=== PATIENT | male | born 1945 | race Caucasian/White ===

== ENCOUNTER 2017-10-04 17:08 | Observation (INO) | payer OTHER, MEDICAID ==
[~2017-10-04] VITALS: Ht 147.3 cm; Wt 73.9 kg
[2017-10-04 17:13] VITALS: BP 154/88
[2017-10-04] MEDS ORDERED: TELMISARTAN40 MG PO (17:38)
[2017-10-04] MEDS ORDERED: TOPROL XL100 MG PO (17:38)
[2017-10-04] MEDS ORDERED: LIPITOR 20 MG T20 M1 PO (17:39)
[2017-10-04] MEDS ORDERED: GLUCOPHAGE XR500 MG PO (17:39)
[2017-10-04] MEDS ORDERED: OMEPRAZOLE 20 M20 M1 PO (17:39)
[2017-10-04] MEDS ORDERED: SERTRALINE HCL50 MG PO (17:39)
[2017-10-04] MEDS ORDERED: FLOMAX0.4 MG PO (17:39)
[2017-10-04 17:45] LABS: ABSOLUTE BASOPHILS 0.1 thou/uL (0.0-0.2); ABSOLUTE EOSINOPHILS 0.1 thou/uL (0.0-0.7); ABSOLUTE LYMPHOCYTES 2.2 thou/uL (0.8-5.3); ABSOLUTE NEUTROPHILS 6.9 thou/uL (1.6-8.1); EOSINOPHILS 1.2 %; HEMATOCRIT 46.5 % (42.0-52.0); HEMOGLOBIN 15.5 gm/dL (14.0-18.0); LYMPHOCYTES 21.2 %; MCH 30.5 pg (26.0-34.0); MCHC 33.3 g/dL (28.0-37.0); MCV 91.6 fL (80.0-100.0); MPV 10.4 fl. (7.2-11.1); NUCLEATED RBCS 0 /100WBC; PLATELET COUNT* 183 thou/uL (150-400); POLYS 66.6 %; RBC 5.08 mil/uL (4.50-6.00); RDW-CV 14.4 % (10.5-14.5); WBC 10.3 thou/uL (4.0-11.0)
[2017-10-04 17:57] LABS: INR 1.1; PROTIME 10.3 Seconds (9.20-11.50)
[2017-10-04 18:00] LABS: ANION GAP 10 mmol/L (7-16); BUN 19 mg/dL (7-18); CALCIUM 8.7 mg/dL (8.5-10.1); CHLORIDE 105 mmol/L (98-107); CO2 24 mmol/L (21-32); CREATININE 1.3 mg/dL (0.6-1.3); GLUCOSE 93 mg/dL (70-99); POTASSIUM 4.5 mmol/L (3.5-5.1); SODIUM 139 mmol/L (136-145)
[2017-10-04 18:07] LABS: ALBUMIN 3.6 g/dL (3.4-5.0); ALKALINE PHOSPHATASE 49 U/L (46-116); LIPASE 367 U/L (73-393); NT-PRO BRAIN NAT PEPTIDE 26 pg/mL (<300); SGOT 23 U/L (15-37); SGPT 47 U/L (30-65); TOTAL PROTEIN 7.3 g/dL (6.4-8.2); TROPONIN-I LEVEL <0.06 ng/mL (<0.06)
[2017-10-04 19:45] VITALS: BP 145/85
--- NOTE | 2017-10-04 20:30 | NUR ---
RECEIVED PATIENT FROM ER- ORIENTED TO ROOM. CALL LIGHT IN REACH. STEEL WELDER APPLIED, TRACING NSR. VSS. SAFETY PRECAUTIONS IN PLACE. PAIN IN HEAD NOTED AT 12/24. WILL CONTACT DR FOR MEDICATIONS. WILL CONT TO MONITOR.
[2017-10-04 21:00] VITALS: BP 179/99
[2017-10-05 03:49] VITALS: BP 139/84
--- NOTE | 2017-10-05 03:55 | NUR ---
END SHIFT: PT RESTED WELL. NO COMPLAINTS. PAIN IN HEAD RELIEVED BY TYLENOL. IVF INFUSING WITHOUT DIFFICUTLY. NIH REMAINS 0. SR/SB ON MONITOR. NO ECTOPY. ASSESSMENT UNCHANGED, VSS. SAFETY PRECAUTIONS IN PLACE. CALL LIGHT IN REACH. PERFORMED HOURLY ROUNDING. WILL CONT TO MONITOR.
[2017-10-05 07:43] LABS: CHOLESTEROL 198 mg/dL (<200); HDL CHOLESTEROL 31 mg/dL (>40); LDL CHOLESTEROL 128 mg/dL (<100); TC:HDL 6.4 Ratio (Not establshd); TRIGLYCERIDE 196 mg/dL (<150); VLDL 39 mg/dL (<40)
[2017-10-05 07:45] LABS: SERUM ASSESSMENT Clear
[2017-10-05 11:31] VITALS: BP 150/81
[2017-10-05 12:49] VITALS: BP 150/81
[2017-10-05 13:30] VITALS: BP 150/81
[2017-10-05 13:35] VITALS: BP 150/81
[2017-10-05 14:08] LABS: GLYCOHEMOGLOBIN (HGB A1C) 5.6 % (4.8-5.6)
--- NOTE | 2017-10-05 17:25 | EKG ---
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 Supervisor: SILVINO : 1945 Requested By: Carlos Mccarty Order Number: [id number] MD: Manuel Mukherjee Measurements Intervals [place] Rate: 66 P: 17 [place]: 155 QRS: 182 QRSD: 82 T: QT: 404 QTc: 424 Interpretive Statements Sinus rhythm Right axis deviation Low voltage, extremity leads Abnormal R-wave progression, early transition Nonspecific T abnormalities, diffuse leads No previous ECG available for comparison Electronically Signed On 10-05-2017 17:25:24 CDT by Manuel Mukherjee [email or web address] <ELECTRONICALLY SIGNED> By: Manuel Mukherjee MD, FACC 10/05/17 1725 1716 1716 Manuel Mukherjee MD, FAC /EPI
--- NOTE | 2017-10-05 18:37 | NUR ---
I ASSUMED CARE OF THE PATIENT AT 0700. HE IS ALERT AND ORIENTED X4 AND UP AD DEL. HE IS ON ROOM AIR AND HE IS NORMAL SINUS RHYTHM. [facility] L[facility] AND HAS HOME HEALTH CARE. NIH IS ZERO. PATIENT HAS BEEN ADVISED TO TAKE ASPRIN AND TO INCREASE LIPITOR TO 40 MG. SKIN IS INTACT. MRA AND MRI CAME BACK OKAY, SO PATIENT IS OKAY TO DISCHARGE. BED IS IN THE LOW LOCKED POSITION AND CALL LIGHT IS IN REACH. HOURLY ROUNDING WAS COMPLETED AND PATIENT NEEDS WERE MET. IV WAS REMOVED. PATIENT DID LEFT THE BUILDING WHILE I WAS PRINTING DISCHARGE INSTRUCTIONS, SO NO SIGNATURE WAS OBTAINED. HE WAS EDUCATED. WILL CONTINUE TO MONITOR.
--- NOTE | 2017-10-14 12:30 | H ---
[place] [address] HISTORY AND PHYSICAL Name: SCOTT VORA Room: [address] John Bailey#: [id number] Admission: 10/04/17 Attend Phys: Sj Elkins MD Discharge: 10/05/17 Date of : 47 Report #: [id number] THIS REPORT FOR: //name// CC: Sj Elkins [facility] physician/PCP DATE OF SERVICE: 10/04/2017 CHIEF COMPLAINT OR REASON FOR ADMISSION: Headache with left upper extremity paresthesias. HISTORY OF PRESENT ILLNESS: This is a 72-year-old gentleman seen in the emergency department, is awake and alert, able to conversate. He mentions that he woke up this morning with severe headache and subsequently noticed that his arm was hurting and he was not feeling himself. He took Tylenol and felt slightly improved. He ate breakfast and about 11:00 o'clock, he started feeling his left upper extremity numbness. He has had a similar symptom twice before. I believe at [facility] include [facility] beds at the [facility] he was worked up and he was told that he had a TIA. Hence, he wanted to check himself and he went to his primary care physician and was told to go to the Emergency Department. He is in the Emergency Department, his symptoms have improved. He denies any fevers or chills, any cough, but he does complain of sinus congestion. No travel history or no sick contact. No nausea, no vomiting, no other complaints at this time. PAST MEDICAL HISTORY: History of TIA, hypertension, hyperlipidemia, BPH, diabetes, anxiety, and depression. CURRENT MEDICATIONS: List include telmisartan, metoprolol, metformin, Lipitor, omeprazole, Flomax, and sertraline. ALLERGIES: No known allergies. REVIEW OF SYSTEMS: HEAD: No complaints of any headache. EYES: No visual symptoms. EARS: No hearing difficulty. NOSE: Nasal congestion. THROAT: No soreness in throat. LUNGS: No cough, shortness of breath. CARDIOVASCULAR: No chest pain or palpitation. GASTROINTESTINAL: No nausea, no vomiting, no diarrhea. GENITOURINARY: No urine frequency, urgency. SKIN: No gross lesions or rashes. ENDOCRINE: History of diabetes. PSYCHIATRIC: History of anxiety[place] [address] HISTORY AND PHYSICAL Name: SCOTT VORA Room: [address]#: [id number] Admission: 10/04/17 Attend Phys: Sj Elkins MD Discharge: 10/05/17 Date of : 47 Report #: [id number] HEMATOLOGIC: No complaints of easy bruising or easy bleeding. MUSCULOSKELETAL: No complaints of aches or pains in joints. SKIN: No gross skin lesions or rashes. FAMILY MEDICAL HISTORY: Negative for any malignancies. SOCIAL HISTORY: Negative for any smoking, drinking or recreational drug use. PHYSICAL EXAMINATION: GENERAL: This is a 72-year-old gentleman seen in the emergency department, is awake and alert, does not appear to be in distress. VITAL SIGNS: Stable to appear. Blood pressure is 154/88. HEENT: Atraumatic, normocephalic. EYES: Conjunctivae are clear. Pupils are reactive. NOSE: There is no nasal discharge. NECK: Supple, no thyromegaly. No JVP appreciated. LUNGS: Diminished. CARDIOVASCULAR: S1, S2 appears to be regular. ABDOMEN: Soft, nontender, no organomegaly appreciated. Bowel sounds are active. GENITOURINARY: Deferred. RECTAL: Deferred. SKIN: Warm and dry. EXTREMITIES: No cyanosis, clubbing or pedal edema noticed. VASCULAR: Upper and lower extremity pulses appear to be equal. NEUROLOGIC: The patient is alert and conversational. Extraocular movements are intact. Pupils are equal and reactive. No facial droop. Fullerette intact in upper extremities. Gait not evaluated. Lower extremity strength appears to be intact. He does have some tremors. No obvious cerebellar signs that I could appreciate. No obvious cranial nerve deficits that I could appreciate. LABORATORY DATA: For this patient, reviewed. Chest x-ray is negative. Hemoglobin is 15, hematocrit 46, WBC count is 10, and platelet count is 183. Sodium 139, potassium 4.5, BUN 19, creatinine is 1.3. Head CT scan is showing atrophic changes. ASSESSMENT AND PLAN: A 72-year-old gentleman who presents to the hospital with left upper extremity paresthesias that have improved. History of previous transient ischemic attack. Multiple medical comorbidities including diabetes, hypertension, and obesity. Symptoms are concerning for possible stroke or transient ischemic attack. IMPRESSION: 1. Left upper extremity paraesthesias possible stroke. 2. Hypertension. 3. Diabetes mellitus type 2[place] [address] HISTORY AND PHYSICAL Name: SCOTT VORA Room: [address]#: [id number] Admission: 10/04/17 Attend Phys: Sj Elkins MD Discharge: 10/05/17 Date of : 47 Report #: [id number] 4. Morbid obesity. 5. Benign prostatic hypertrophy. PLAN: To admit this patient, telemetry monitoring, neurology evaluation, stroke workup. For further plan and management, please also see orders and consults. PROGNOSIS: Guarded at this point, the patient educated thoroughly regarding plan of care. He verbalizes understanding. <ELECTRONICALLY SIGNED> By: Sj Elkins MD 10/14/17 1230 1858 2030Anil Ivet Elkins MD /[facility]
== END 2017-10-05 14:00 | disposition home or self-care (01) ==
LOC: M.ERS 17:08 → M.2W 18:41 → M.TBA-ER 18:41 → M.2W 19:45
PROVIDERS: Emergency Medicine; ADMIT Internal Medicine
DX: R20.2 Paresthesia of skin (principal); G43.909 Migraine, unspecified, not intractable, without status migrainosus; I11.9 Hypertensive heart disease without heart failure; E11.9 Type 2 diabetes mellitus without complications; E66.01 Morbid (severe) obesity due to excess calories; Z68.34 Body mass index [BMI] 34.0-34.9, adult; N40.0 Benign prostatic hyperplasia without lower urinary tract symptoms; E78.5 Hyperlipidemia, unspecified; K21.9 Gastro-esophageal reflux disease without esophagitis; F32.9 Major depressive disorder, single episode, unspecified; F41.9 Anxiety disorder, unspecified; Z86.73 Personal history of transient ischemic attack (TIA), and cerebral infarction without residual deficits

== ENCOUNTER 2018-12-11 15:48 | Emergency (ER) | payer OTHER, MEDICAID ==
[~2018-12-11] VITALS: Ht 152.4 cm; Wt 77.1 kg
[~2018-12-11 15:48] MED LIST: FLOMAX0.4 MG PO; GLUCOPHAGE XR500 MG PO; LIPITOR 20 MG T20 M1 PO; OMEPRAZOLE 20 M20 M1 PO; SERTRALINE HCL50 MG PO; TELMISARTAN40 MG PO; TOPROL XL100 MG PO
[2018-12-11] MEDS ORDERED: MAGOX 400400 MG PO (16:05)
[2018-12-11] MEDS ORDERED: RED YEAST RICE600 MG PO (16:07)
[2018-12-11] MEDS ORDERED: POTASSIUM CHLO500 G1 PO (16:07)
[2018-12-11 16:51] LABS: ABSOLUTE BASOPHILS 0.1 thou/uL (0.0-0.2); ABSOLUTE EOSINOPHILS 0.3 thou/uL (0.0-0.7); ABSOLUTE LYMPHOCYTES 1.9 thou/uL (0.8-5.3); ABSOLUTE MONOCYTES 0.6 thou/uL (0.0-1.2); ABSOLUTE NEUTROPHILS 5.1 thou/uL (1.6-8.1); BASOPHILS 1.2 %; EOSINOPHILS 3.9 %; HEMOGLOBIN 14.8 gm/dL (14.0-18.0); LYMPHOCYTES 23.6 %; MCH 31.6 pg (26.0-34.0); MCHC 33.7 g/dL (28.0-37.0); MCV 93.7 fL (80.0-100.0); MONOCYTES 7.7 %; MPV 10.5 fl. (7.2-11.1); NUCLEATED RBCS 0 /100WBC; PLATELET COUNT* 165 thou/uL (150-400); POLYS 63.6 %
[2018-12-11 16:56] LABS: ANION GAP 9 mmol/L (7-16); BUN 15 mg/dL (7-18); CHLORIDE 106 mmol/L (98-107); CO2 26 mmol/L (21-32); CREATININE 1.1 mg/dL (0.6-1.3); GLUCOSE 198 mg/dL (70-99); POTASSIUM 3.7 mmol/L (3.5-5.1); SODIUM 141 mmol/L (136-145)
[2018-12-11 17:07] LABS: ALBUMIN 3.1 g/dL (3.4-5.0); ALKALINE PHOSPHATASE 63 U/L (46-116); NT-PRO BRAIN NAT PEPTIDE 74 pg/mL (<300); SGOT 22 U/L (15-37); SGPT 39 U/L (30-65); TOTAL BILIRUBIN 0.6 mg/dL (<0.1-1.0); TOTAL PROTEIN 6.8 g/dL (6.4-8.2); TROPONIN-I LEVEL <0.06 ng/mL (<0.06)
[2018-12-11] MEDS ORDERED: MICARDIS 80 MG80 MG PO (17:13)
[2018-12-11 17:46] VITALS: BP 159/97
--- NOTE | 2018-12-12 09:42 | EKG ---
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: : 1945 Requested By: Carlos Mccarty Order Number: [id number] MD: Jeff Perera Measurements Intervals [place] Rate: 68 P: RI: QRS: -25 QRSD: 90 T: 95 QT: 425 QTc: 453 Interpretive Statements nsr , baseline artifact Abnormal R-wave progression, early transition Inferior infarct, old Lateral leads are also involved Compared to ECG 10/04/2017 17:16:10 AV block, advanced (high-grade) now present Myocardial infarct finding now present Sinus rhythm no longer present Right-axis deviation no longer present T-wave abnormality no longer present Electronically Signed On 12-12-2018 9:42:45 CDT by Jeff Perera [email or web address] <ELECTRONICALLY SIGNED> By: Jeff Perera MD, [facility] 12/12/18 0942 160 160 Jeff Perera MD, [facility] /EPI
== END 2018-12-11 17:39 | disposition home or self-care (01) ==
LOC: M.ERS 15:48
PROVIDERS: Emergency Medicine
DX: I10 Essential (primary) hypertension (principal); E11.9 Type 2 diabetes mellitus without complications; G20 Parkinson's disease; Z86.73 Personal history of transient ischemic attack (TIA), and cerebral infarction without residual deficits

== ENCOUNTER 2018-12-25 15:03 | Emergency (ER) | payer OTHER, MEDICAID ==
[~2018-12-25] VITALS: Ht 152.4 cm; Wt 83.6 kg
[~2018-12-25 15:03] MED LIST changes: +MAGOX 400400 MG PO; +MICARDIS 80 MG80 MG PO; +POTASSIUM CHLO500 G1 PO; +RED YEAST RICE600 MG PO
[2018-12-25 15:34] LABS: ABSOLUTE BASOPHILS 0.1 thou/uL (0.0-0.2); ABSOLUTE EOSINOPHILS 0.4 thou/uL (0.0-0.7); ABSOLUTE LYMPHOCYTES 2.2 thou/uL (0.8-5.3); ABSOLUTE MONOCYTES 1.1 thou/uL (0.0-1.2); ABSOLUTE NEUTROPHILS 6.2 thou/uL (1.6-8.1); BASOPHILS 1.3 %; EOSINOPHILS 3.5 %; HEMATOCRIT 45.3 % (42.0-52.0); HEMOGLOBIN 15.5 gm/dL (14.0-18.0); LYMPHOCYTES 22.1 %; MCH 31.8 pg (26.0-34.0); MCHC 34.1 g/dL (28.0-37.0); MCV 93.1 fL (80.0-100.0); MONOCYTES 10.6 %; MPV 10.6 fl. (7.2-11.1); NUCLEATED RBCS 0 /100WBC; PLATELET COUNT* 193 thou/uL (150-400); POLYS 62.5 %; RBC 4.87 mil/uL (4.50-6.00); RDW-CV 14.4 % (10.5-14.5)
[2018-12-25 15:41] LABS: ANION GAP 10 mmol/L (7-16); BUN 12 mg/dL (7-18); CALCIUM 8.1 mg/dL (8.5-10.1); CHLORIDE 105 mmol/L (98-107); CO2 27 mmol/L (21-32); CREATININE 1.2 mg/dL (0.6-1.3); GLUCOSE 120 mg/dL (70-99); POTASSIUM 4.3 mmol/L (3.5-5.1); SODIUM 142 mmol/L (136-145)
[2018-12-25 15:43] LABS: APTT 24.5 Seconds (25.0-31.3)
[2018-12-25 15:52] LABS: ALBUMIN 3.4 g/dL (3.4-5.0); ALKALINE PHOSPHATASE 69 U/L (46-116); LIPASE 427 U/L (73-393); NT-PRO BRAIN NAT PEPTIDE 37 pg/mL (<300); SGOT 26 U/L (15-37); SGPT 17 U/L (30-65); TOTAL BILIRUBIN 0.8 mg/dL (<0.1-1.0); TOTAL PROTEIN 7.4 g/dL (6.4-8.2); TROPONIN-I LEVEL <0.06 ng/mL (<0.06)
[2018-12-25] MEDS ORDERED: ZOFRAN ODT4 MG PO (18:14)
[2018-12-25] MEDS ORDERED: NORCO 5-325 TA1 EAC1 PO (18:14)
[2018-12-25 18:25] VITALS: BP 124/82
--- NOTE | 2018-12-26 09:14 | EKG ---
[place] [address] ELECTROCARDIOGRAM REPORT Name: SCOTT VORA Room: [facility]#: [id number] Admission: 12/25/18 Attend Phys: Discharge: 12/25/18 Date of : 47 Report #: [id number] THIS REPORT FOR: //name// [facility] ED Test Date: 2018-12-25 Test Time: 15:08:52 Pat Name: SCOTT VORA Department: Room: Gender: M [place]: YANIRA : 1945 Requested By: Melyssa Cornejo Order Number: [id number] MD: Donnell Lambert Measurements Intervals [place] Rate: 78 P: 47 [place]: 162 QRS: -30 QRSD: 92 T: 83 QT: 388 QTc: 442 Interpretive Statements Sinus rhythm Abnormal R-wave progression, early transition Inferior infarct, old Lateral leads are also involved Baseline wander in lead(s) II,III,aVL,aVF,V1,V2,V3,V4,V5 Compared to ECG 12/11/2018 16:02:17 No significant changes Electronically Signed On 12-26-2018 9:14:34 CDT by Donnell Lambert [email or web address] <ELECTRONICALLY SIGNED> By: Donnell Lambert MD, FAC 12/26/18 0914 1508 1508 Donnell Lambert MD, FAC /EPI
== END 2018-12-25 18:26 | disposition home or self-care (01) ==
LOC: M.ERS 15:03
PROVIDERS: Personal Emergency Response Attendant
DX: K85.90 Acute pancreatitis without necrosis or infection, unspecified (principal); I10 Essential (primary) hypertension; E11.9 Type 2 diabetes mellitus without complications; G20 Parkinson's disease; Z86.73 Personal history of transient ischemic attack (TIA), and cerebral infarction without residual deficits

== ENCOUNTER 2019-01-18 16:43 | Inpatient (IN) | payer OTHER, MEDICAID ==
[~2019-01-18] VITALS: Ht 147.3 cm; Wt 82.5 kg
[~2019-01-18 16:43] MED LIST changes: +NORCO 5-325 TA1 EAC1 PO; +ZOFRAN ODT4 MG PO
[2019-01-18 16:50] VITALS: BP 120/75
[2019-01-18 17:32] LABS: ABSOLUTE BASOPHILS 0.1 thou/uL (0.0-0.2); ABSOLUTE EOSINOPHILS 0.3 thou/uL (0.0-0.7); ABSOLUTE LYMPHOCYTES 2.7 thou/uL (0.8-5.3); ABSOLUTE MONOCYTES 1.1 thou/uL (0.0-1.2); ABSOLUTE NEUTROPHILS 7.5 thou/uL (1.6-8.1); BASOPHILS 0.8 %; EOSINOPHILS 2.2 %; HEMATOCRIT 48.9 % (42.0-52.0); HEMOGLOBIN 16.4 gm/dL (14.0-18.0); LYMPHOCYTES 22.9 %; MCH 31.2 pg (26.0-34.0); MCHC 33.5 g/dL (28.0-37.0); MCV 93.3 fL (80.0-100.0); MONOCYTES 9.8 %; MPV 10.9 fl. (7.2-11.1); NUCLEATED RBCS 0 /100WBC; PLATELET COUNT* 243 thou/uL (150-400); POLYS 64.3 %; RBC 5.23 mil/uL (4.50-6.00); RDW-CV 14.6 % (10.5-14.5); WBC 11.6 thou/uL (4.0-11.0)
[2019-01-18 17:47] LABS: TROPONIN-I LEVEL 0.23 ng/mL (<0.06)
[2019-01-18 17:54] LABS: CALCIUM 9.8 mg/dL (8.5-10.1); CREATININE 2.1 mg/dL (0.6-1.3); POTASSIUM 4.4 mmol/L (3.5-5.1)
[2019-01-18 17:56] LABS: PROTIME 10.4 Seconds (9.20-11.50)
[2019-01-18 17:58] LABS: ALBUMIN 3.8 g/dL (3.4-5.0); TOTAL BILIRUBIN 0.9 mg/dL (<0.1-1.0); TOTAL PROTEIN 8.1 g/dL (6.4-8.2)
[2019-01-18 20:03] VITALS: BP 118/76
[2019-01-18 20:30] VITALS: BP 120/77
[2019-01-19] VITALS (11 sets, daily range): BP systolic 86–124; BP diastolic 51–83
[2019-01-19] MEDS ORDERED: HYDROCHLOROTHIA25 M2 PO (01:36)
--- NOTE | 2019-01-19 12:33 | EKG ---
[place] [address] ELECTROCARDIOGRAM REPORT Name: SCOTT VORA Room: [address] ADM IN .R.#: [id number] Admission: 01/18/19 Attend Phys: Finesse Mccoy Discharge: Date of : 47 Report #: [id number] THIS REPORT FOR: //name// [facility] ED Test Date: 2019-01-18 Test Time: 16:54:48 Pat Name: SCOTT VORA Department: Room: [facility] Gender: M Rn Digestive: : 1945 Requested By: Melyssa Cornejo Order Number: [id number] MD: Donnell Lambert Measurements Intervals [place] Rate: 108 P: 44 VT: 141 QRS: -43 QRSD: 89 T: 68 QT: 340 QTc: 456 Interpretive Statements Sinus tachycardia Abnormal R-wave progression, early transition Inferior infarct, old Baseline wander in lead(s) V2 Compared to ECG 12/25/2018 15:08:52 Sinus rhythm no longer present Myocardial infarct finding still present Electronically Signed On 01-19-2019 12:33:17 CDT by Donnell Lambert [email or web address] <ELECTRONICALLY SIGNED> By: Donnell Lambert MD, [facility] 01/19/19 1233 1654 1654 Donnell Lambert MD, [facility] /EPI
--- NOTE | 2019-01-19 12:34 | EKG ---
[place] [address] ELECTROCARDIOGRAM REPORT Name: SCOTT VORA Room: [address] ADM IN R.#: [id number] Admission: 01/18/19 Attend Phys: Finesse Mccoy Discharge: Date of : 47 Report #: [id number] THIS REPORT FOR: //name// [facility] ED Test Date: 2019-01-18 Test Time: 18:45:33 Pat Name: SCOTT VORA Department: Room: [facility] Gender: M Town Justice: : 1945 Requested By: Melyssa Cornejo Order Number: [id number] MD: Donnell Lambert Measurements Intervals [place] Rate: 103 P: 32 OR: 149 QRS: -40 QRSD: 81 T: 25 QT: 359 QTc: 470 Interpretive Statements Sinus tachycardia Abnormal R-wave progression, late transition Inferior infarct, old Electronically Signed On 01-19-2019 12:34:01 CDT by Donnell Lambert [email or web address] <ELECTRONICALLY SIGNED> By: Donnell Lambert MD, [facility] 01/19/19 1234 1845 1845 Donnell Lambert MD, FACC /EPI
--- NOTE | 2019-01-19 16:34 | CARD ---
[address] [address] CARDIAC CATH REPORT Name: VORASCOTT JUAREZ Ehsan Room: [address]#: [id number] Admission: 01/18/19 Attend Phys: Finesse Mccoy Discharge: 01/19/19 Date of : 47 Report #: [id number] THIS REPORT FOR: //name// APPROVED REPORT Study performed: 01/19/2019 10:24:26 Patient Details Patient Status: In-Patient Room #: The patient is a 73 year-old male Event Personnel Donnell Lambert Metal Precision Machine Assembler, Lacie Garcia RN RN, Jagdeep Posada Lawhorn, Becki RTR Monitor, Saul Curiel SURFACE MOUNT TECHNOLOGY OPERATOR Monitor, Denisse Carr RTR Monitor Procedures Performed Art Access - R radial artery Left Heart Cath w/or w/o Coronaries [id number] [facility] Hemostasis with Hemoband Indication Non-STEMI , Chest pain Risk Factors Hypertension, Diabetes Previous Procedures/Diagnoses Previous CVA Admission/Lab Medications/Medications given during procedure Glycoprotein IllbIlla Inhibitors, Midazolam (Versed) IV 2 mg, Lidocaine Subcut 5 ml, Nitroglycerin IA 200 mcg, Verapamil IA 2.5 mg, Aggrastat Unknown 8.4 ml Procedure Narrative The patient was brought electively to the Cardiac Catheterization Laboratory and was prepped and draped in a sterile manner. The right wrist was infiltrated with 1% Lidocaine subcutaneous anesthesia. A Slender Glidesheath sheath was inserted into the right radial artery. Coronary angiography was performed using coronary diagnostic catheters. The right coronary system was accessed and visualized with a JR4 catheter. The left coronary system was accessed and visualized with a JL4 catheter. The left ventricle was accessed and visualized with a JR4 catheter. Left ventricular/[place] [address] CARDIAC CATH REPORT Name: SCOTT VORA Room: [address]#: [id number] Admission: 01/18/19 Attend Phys: Finesse Mccoy Discharge: 01/19/19 Date of : 47 Report #: [id number] via catheter pullback. Closure device was deployed with a 6 Fr TR BAND. The patient tolerated the procedure well and there were no complications associated with the procedure. There was no hematoma. Intraoperative Conscious Sedation Sedation start time: 11:16 Case end Time: 11:45 Fluoro Time: 3.0 minutes Dose: DAP 16100 cGycm2 730 mGy Contrast Type and Amount: Omnipaque 150 ml Coronary Angiography The patient's coronary anatomy is co- dominant. Diagnostic Cath Left Main 0% stenosis LAD 80% proximal stenosis with 99% mid stenosis and slow antegrade HEATHER grade II flow Circumflex 90% mid stenosis Right Coronary 90% mid and 50% distal stenoses Left Ventriculography Left Ventriculography was not performed. Hemodynamics The aortic pressure is 69/45 mmHg with a mean of 55 mmHg. The left ventricular pressure is 69/5 mmHg with a mean of mmHg. The left ventricular end diastolic pressure is 8 mmHg. There was no gradient across the aortic valve upon pullback. Pullback from the left ventricle to the aorta revealed no gradient across the aortic valve. Conclusion 1. 80% proximal and 99% mid stenoses of lad with slow antegrade flow noted 2. 90% mid stenosis of circumflex and 90% mid stenosis of rca Recommendations CABG <ELECTRONICALLY SIGNED> By: Donnell Lambert MD, FACC 01/19/19 1634 1634 1634Ddarlene Lambert MD, FACC /INF
--- NOTE | 2019-01-21 10:28 | CON ---
[facility] [address] [place] [address] CONSULTATION Name: SCOTT VORA Room: [address] IN .R.#: [id number] Admission: 01/18/19 Attend Phys: Finesse Mccoy Discharge: 01/19/19 Date of : 47 Report #: [id number] THIS REPORT FOR: //name// CC: Jame Mackey DATE OF SERVICE: 01/19/2019 TYPE OF REPORT: Cardiology consultation. HISTORY OF THE PRESENT ILLNESS: The patient is a 73-year-old single white male who I was asked to see in the hospital today after he complained of chest pain. The history is obtained from the patient. He was actually here in 09/2017 with apparently paresthesias. He was seen by Neurology at that time. He is not very active and lives in a snf home. The patient came to the Emergency Room yesterday complaining of lightheadedness. He noticed some discomfort on the left side of his chest and arm. He felt diaphoretic, nausea and actually vomited. Her friend brought him to the Emergency Room and he was admitted. He did have some belching but denies any bleeding, fever or cough. He has felt short of breath lately and he notes his heart beating irregular but has had no syncope. He was admitted for further evaluation and treatment. PAST MEDICAL HISTORY: He has had no major surgical procedures. He does have a history of diabetes, hypertension and Parkinson's disease. He apparently has had a previous stroke in the past. CURRENT MEDICATIONS: Include metoprolol, Flomax, Zoloft, metformin, omeprazole and red yeast rice. ALLERGIES: He has no known drug allergies. FAMILY HISTORY: Positive for heart disease. 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 No smoking. Occasionally drinks alcohol. REVIEW OF SYSTEMS: He apparently saw a solar installer recently at [facility] and was told his heart was doing fine. He has a history of COPD. No bleeding. No kidney disease. No cancer. No psychiatric illness. PHYSICAL EXAMINATION: GENERAL: Revealed an elderly male, lying in bed. He appeared in no acute distress. VITAL SIGNS: He had a blood pressure 120/80, pulse 70 and he is afebrile. HEENT: He was anicteric. Conjunctivae are pink. [place] [address] CONSULTATION Name: SCOTT VORA Room: [address]#: [id number] Admission: 01/18/19 Attend Phys: Finesse Mccoy Discharge: 01/19/19 Date of : 47 Report #: [id number] NECK: Veins do not appear distended. No carotid bruits. Neck supple. CHEST: Clear to auscultation. CARDIOVASCULAR: Regular rate and rhythm. ABDOMEN: Soft. EXTREMITIES: Had no edema. Dorsalis pedis pulse 1+ bilaterally. SKIN: Cool and dry. NEUROLOGICAL: Nonfocal. LYMPHATIC: No adenopathy. MUSCULOSKELETAL: No joint effusion. RADIOLOGICAL DATA: His ECG on admission showed a sinus rhythm, evidence of previous inferior posterior infarction. His workup in the Emergency Room yesterday, he had a portable chest x-ray that showed no acute abnormalities. Carotid Doppler study in 2018 showed no significant stenosis. LABORATORY DATA: His lab work yesterday, BUN 24 and creatinine 2.1, it was actually 1.2 in December. His troponin is 2.74. In 2018, cholesterol 198, triglyceride 196, HDL 31 and LDL 128. White blood cell count 11.6 and hemoglobin 16.4. IMPRESSION RECOMMENDATIONS: 1. Gzu-RP-gfvddgr elevation myocardial infarction. The patient has multiple risk factors for coronary artery disease. Recommend cardiac catheterization. If a stenosis is noted, I would consider stenting. 2. Hypertension. The patient has been on a beta stella. 3. Diabetes. 4. Previous stroke. 5. Dizziness, reason unclear. <ELECTRONICALLY SIGNED> By: Donnell Lambert MD, [facility] 01/21/19 1028 0826 1038Davifinesse Lambert MD, FAC /nt
[2019-01-28] MEDS ORDERED: FERREX 150 PLU1 EAC1 PO (11:08)
[2019-01-28] MEDS ORDERED: METOPROLOL SUCC50 MG PO (11:09)
[2019-01-28] MEDS ORDERED: COZAAR 25 MG TA25 M1 PO (11:09)
[2019-01-28] MEDS ORDERED: CARBIDOPA-LEVO1 EA11 PO (11:10)
[2019-01-28] MEDS ORDERED: ADULT LOW DOSE81 MG PO (11:10)
== END 2019-01-19 15:44 | disposition short-term general hospital (02) | DRG 280 ==
LOC: M.ERS 16:43 → M.TBA-ER 19:05 → M.2W 19:05
PROVIDERS: Personal Emergency Response Attendant; ADMIT Internal Medicine
PROC: B2111ZZ Fluoroscopy of Multiple Coronary Arteries using Low Osmolar Contrast (ICD-10-PCS; principal; 2019-01-19)
PROC: 4A023N7 Measurement of Cardiac Sampling and Pressure, Left Heart, Percutaneous Approach (ICD-10-PCS; principal; 2019-01-19)
DX: I21.4 Non-ST elevation (NSTEMI) myocardial infarction (principal); N17.0 Acute kidney failure with tubular necrosis; I25.10 Atherosclerotic heart disease of native coronary artery without angina pectoris; G20 Parkinson's disease; E11.22 Type 2 diabetes mellitus with diabetic chronic kidney disease; I12.9 Hypertensive chronic kidney disease with stage 1 through stage 4 chronic kidney disease, or unspecified chronic kidney disease; N18.9 Chronic kidney disease, unspecified; Z79.1 Long term (current) use of non-steroidal anti-inflammatories (NSAID); Z86.73 Personal history of transient ischemic attack (TIA), and cerebral infarction without residual deficits; Z79.899 Other long term (current) drug therapy

== ENCOUNTER 2019-02-16 21:46 | Emergency (ER) | payer OTHER, MEDICAID ==
[~2019-02-16] VITALS: Ht 152.4 cm; Wt 77.1 kg
[~2019-02-16 21:46] MED LIST changes: +ADULT LOW DOSE81 MG PO; +CARBIDOPA-LEVO1 EA11 PO; +COZAAR 25 MG TA25 M1 PO; +FERREX 150 PLU1 EAC1 PO; +HYDROCHLOROTHIA25 M2 PO; +METOPROLOL SUCC50 MG PO
[2019-02-16 22:29] LABS: ABSOLUTE BASOPHILS 0.1 thou/uL (0.0-0.2); ABSOLUTE EOSINOPHILS 0.2 thou/uL (0.0-0.7); ABSOLUTE LYMPHOCYTES 2.5 thou/uL (0.8-5.3); ABSOLUTE MONOCYTES 1.2 thou/uL (0.0-1.2); ABSOLUTE NEUTROPHILS 5.4 thou/uL (1.6-8.1); BASOPHILS 1.2 %; EOSINOPHILS 2.1 %; HEMATOCRIT 40.9 % (42.0-52.0); HEMOGLOBIN 13.5 gm/dL (14.0-18.0); LYMPHOCYTES 26.2 %; MCH 31.3 pg (26.0-34.0); MCHC 33.1 g/dL (28.0-37.0); MCV 94.5 fL (80.0-100.0); MONOCYTES 12.7 %; NUCLEATED RBCS 0 /100WBC; PLATELET COUNT* 276 thou/uL (150-400); POLYS 57.8 %; RBC 4.33 mil/uL (4.50-6.00); RDW-CV 14.5 % (10.5-14.5); WBC 9.4 thou/uL (4.0-11.0)
[2019-02-16 22:41] LABS: PROTIME 10.3 Seconds (9.20-11.50)
[2019-02-16 22:45] LABS: ANION GAP 8 mmol/L (7-16); BUN 23 mg/dL (7-18); CALCIUM 8.8 mg/dL (8.5-10.1); CHLORIDE 101 mmol/L (98-107); CO2 31 mmol/L (21-32); CREATININE 1.4 mg/dL (0.6-1.3); GLUCOSE 105 mg/dL (70-99); POTASSIUM 3.8 mmol/L (3.5-5.1); SODIUM 140 mmol/L (136-145)
[2019-02-16 22:48] LABS: ALBUMIN 3.5 g/dL (3.4-5.0); ALKALINE PHOSPHATASE 74 U/L (46-116); LIPASE 488 U/L (73-393); NT-PRO BRAIN NAT PEPTIDE 287 pg/mL (<300); SGOT 19 U/L (15-37); SGPT 30 U/L (30-65); TOTAL BILIRUBIN 0.4 mg/dL (<0.1-1.0); TOTAL PROTEIN 7.6 g/dL (6.4-8.2); TROPONIN-I LEVEL <0.06 ng/mL (<0.06)
[2019-02-17 00:10] VITALS: BP 110/80
--- NOTE | 2019-02-17 16:18 | EKG ---
[place] [address] ELECTROCARDIOGRAM REPORT Name: SCOTT VORA Room: [facility]#: [id number] Admission: 02/16/19 Attend Phys: Discharge: 02/17/19 Date of : 47 Report #: [id number] THIS REPORT FOR: //name// [facility] ED Test Date: 2019-02-16 Test Time: 21:50:53 Pat Name: SCOTT VORA Department: Room: Gender: M President Ceo & Founder: : 1945 Requested By: Melyssa Cornejo Order Number: [id number] MD: Jame Matias Measurements Intervals [place] Rate: 66 P: 58 MA: 157 QRS: -23 QRSD: 111 T: 215 QT: 440 QTc: 461 Interpretive Statements Sinus rhythm Borderline left axis deviation Abnrm T, probable ischemia, anterolateral lds Compared to ECG 01/18/2019 18:45:33 Possible ischemia now present Sinus tachycardia no longer present Myocardial infarct finding no longer present Electronically Signed On 02-17-2019 16:17:46 CDT by Jame Matias [email or web address] <ELECTRONICALLY SIGNED> By: Jame Matias MD, [facility] 02/17/19 1617 2150 2150 Jame Matias MD, [facility] /EPI
== END 2019-02-17 00:10 | disposition home or self-care (01) ==
LOC: M.ERS 21:46
PROVIDERS: Personal Emergency Response Attendant
DX: R00.2 Palpitations (principal); I10 Essential (primary) hypertension; E11.9 Type 2 diabetes mellitus without complications; G20 Parkinson's disease; Z95.1 Presence of aortocoronary bypass graft; Z86.73 Personal history of transient ischemic attack (TIA), and cerebral infarction without residual deficits

== ENCOUNTER 2019-10-03 16:18 | Inpatient (IN) | payer OTHER, MEDICAID ==
[~2019-10-03] VITALS: Ht 152.4 cm; Wt 83.0 kg
[~2019-10-03 16:18] MED LIST changes: -GLUCOPHAGE XR500 MG PO; +METFORMIN HCL500 MG PO
[2019-10-03 16:45] LABS: ABSOLUTE BASOPHILS 0.1 thou/uL (0.0-0.2); ABSOLUTE EOSINOPHILS 0.2 thou/uL (0.0-0.7); ABSOLUTE LYMPHOCYTES 2.7 thou/uL (0.8-5.3); ABSOLUTE MONOCYTES 1.2 thou/uL (0.0-1.2); ABSOLUTE NEUTROPHILS 6.4 thou/uL (1.6-8.1); EOSINOPHILS 1.9 %; HEMATOCRIT 48.3 % (42.0-52.0); HEMOGLOBIN 16.5 gm/dL (14.0-18.0); LYMPHOCYTES 25.5 %; MCH 31.1 pg (26.0-34.0); MCHC 34.1 g/dL (28.0-37.0); MCV 91.2 fL (80.0-100.0); MONOCYTES 11.4 %; MPV 10.4 fl. (7.2-11.1); NUCLEATED RBCS 0 /100WBC; PLATELET COUNT* 212 thou/uL (150-400); POLYS 60.2 %; RDW-CV 15.4 % (10.5-14.5); WBC 10.7 thou/uL (4.0-11.0)
[2019-10-03 16:50] LABS: APTT 25.2 Seconds (25.0-31.3); PROTIME 10.7 Seconds (9.20-11.50)
[2019-10-03 17:07] VITALS: BP 96/60
[2019-10-03 17:12] LABS: CALCIUM 8.7 mg/dL (8.5-10.1); CREATININE 1.8 mg/dL (0.6-1.3)
[2019-10-03 17:17] LABS: ALBUMIN 3.4 g/dL (3.4-5.0); TOTAL BILIRUBIN 0.7 mg/dL (<0.1-1.0); TOTAL PROTEIN 7.9 g/dL (6.4-8.2)
[2019-10-03 18:45] VITALS: BP 149/77
[2019-10-03 18:57] VITALS: BP 137/82
--- NOTE | 2019-10-03 19:03 | NUR ---
PT ADMITTED TO ROOM 213 VIA CART FROM ED AT APPROX 1845. REPORT RECEIVED FROM SHAY CEE. PT ORIENTED TO ROOM AND CALL LIGHT. ADMISSION HX COMPLETED. SEPSIS SCREENING NEGATIVE, VSS, REPORT GIVEN TO ONCOMING SHIFT.
[2019-10-03 20:00] VITALS: BP 129/78; BP 140/82
[2019-10-04] VITALS: BP 122/57
[2019-10-04 04:00] VITALS: BP 113/64
[2019-10-04 07:45] VITALS: BP 154/82
[2019-10-04 08:07] LABS: ALBUMIN 3.1 g/dL (3.4-5.0); ALKALINE PHOSPHATASE 52 U/L (46-116); ANION GAP 11 mmol/L (7-16); BUN 20 mg/dL (7-18); CHLORIDE 102 mmol/L (98-107); CHOLESTEROL 157 mg/dL (<200); CO2 26 mmol/L (21-32); CREATININE 1.4 mg/dL (0.6-1.3); GLUCOSE 103 mg/dL (70-99); HDL CHOLESTEROL 31 mg/dL (>40); LDL CHOLESTEROL 75 mg/dL (<100); POTASSIUM 3.8 mmol/L (3.5-5.1); SGOT 28 U/L (15-37); SGPT 34 U/L (30-65); SODIUM 139 mmol/L (136-145); TC:HDL 5.1 Ratio (Not establshd); TOTAL BILIRUBIN 0.7 mg/dL (<0.1-1.0); TOTAL PROTEIN 7.2 g/dL (6.4-8.2); TRIGLYCERIDE 257 mg/dL (<150); VLDL 51 mg/dL (<40)
[2019-10-04 08:10] LABS: SERUM ASSESSMENT Clear
--- NOTE | 2019-10-04 10:24 | EKG ---
[place] [address] ELECTROCARDIOGRAM REPORT Name: VIELKALEEANNESCOTT Ehsan Room: [address] ADM IN .R.#: [id number] Admission: 10/03/19 Attend Phys: Dominic Christian Discharge: Date of : 47 Date of Service: 10/03/19 1649 Report #: [id number] THIS REPORT FOR: //name// [facility] ED Test Date: 2019-10-03 Test Time: 16:49:50 Pat Name: SCOTT VORA Department: Room: [facility] Gender: M Emergency Communications Operator: : 1945 Requested By: Seamus Ordoñez Order Number: [id number] MD: Tyler Silva Measurements Intervals [place] Rate: 64 P: 54 [place]: 151 QRS: 0 QRSD: 85 T: 145 QT: 415 QTc: 428 Interpretive Statements Sinus rhythm Nonspecific T abnrm, anterolateral leads Compared to ECG 02/16/2019 21:50:53 Possible ischemia no longer present Electronically Signed On 10-04-2019 10:23:06 CDT by Tyler Silva [email or web address] <ELECTRONICALLY SIGNED> By: Tereso Sliva MD, [facility] 10/04/19 1023 1649 1649 Tereso Silva MD, [facility] /EPI
--- NOTE | 2019-10-04 11:02 | NUR ---
ASSUMED PT CARE AT 0730, PT RESTING IN BED, A&OX4, SATTING 95% ON RA, TRACING SR ON THE EVISCERATOR AND HAD NO C/O PAIN OR SHORTNESS OF BREATH BUT DOES C/O SEASONAL ALLERGY FLARE UP, CLARITIN GIVEN. PT WILL WORK W/ PT/OT/ST TODAY AND IS SCHEDULED FOR AN US OF THE CAROTIDS. PT HAS NS RUNNING AT 100, NO L SIDED WEAKNESS NOTED IN ANY EXTREMETIES AND NO FACIAL DROOP, PT HAS HAD NO ISSUES SWALLOWING MEDS, FOOD OR FLUIDS. AM ASSESSMENT CHARTED, MEDS PER MAR, FALL PRECAUTIONS IN PLACE, WILL CONTINUE POC.
[2019-10-04 11:53] VITALS: BP 161/81
[2019-10-04 15:59] VITALS: BP 131/78
--- NOTE | 2019-10-04 18:10 | NUR ---
NO ACUTE CHANGES THROUGHOUT SHIFT, PT HAD FURTHER C/O SEASONAL ALLERGY FLARE UP AND EDUCATION WAS PROVIDED ABOUT MEDICATION REGIMEN. FLUIDS CONTINUED TO INFUSE AT 100 ML/HR AND PT HAD NO C/O PAIN. MEDS GIVEN PER MAR, WILL CONTINUE POC.
[2019-10-05] VITALS: BP 126/71
[2019-10-05 03:07] LABS: GLYCOHEMOGLOBIN (HGB A1C) 6.5 % (4.8-5.6)
[2019-10-05 04:30] VITALS: BP 150/88
[2019-10-05 04:57] LABS: HEMATOCRIT 44.2 % (42.0-52.0); MCH 30.9 pg (26.0-34.0); MCHC 33.9 g/dL (28.0-37.0); MCV 91.1 fL (80.0-100.0); RBC 4.86 mil/uL (4.50-6.00); RDW-CV 15.3 % (10.5-14.5); WBC 7.5 thou/uL (4.0-11.0)
[2019-10-05 05:31] LABS: ALBUMIN 3.1 g/dL (3.4-5.0); CALCIUM 7.7 mg/dL (8.5-10.1); CREATININE 1.1 mg/dL (0.6-1.3); POTASSIUM 4.7 mmol/L (3.5-5.1)
[2019-10-05 08:00] VITALS: BP 145/85
[2019-10-05] MEDS ORDERED: CLARITIN10 MG PO (10:07)
[2019-10-05 10:13] VITALS: BP 145/85
[2019-10-05] MEDS ORDERED: LIPITOR40 MG PO (11:18)
--- NOTE | 2019-10-05 11:32 | 2DMMODE ---
[place] [address] 2 D/M-MODE ECHOCARDIOGRAM Name: SCOTT VORA Ehsan Room: [address] IN [place].#: [id number] Admission: 10/03/19 Attend Phys: Dominic Christian Discharge: Date of : 47 Date of Service: 10/05/19 1130 Report #: [id number] THIS REPORT FOR: cc: Jame Andrade John E. MD [facility] MD [facility] ~ APPROVED REPORT Study performed: 10/05/2019 09:23:05 EXAM: Comprehensive 2D, Doppler, and color-flow Echocardiogram Patient Location: In-Patient Room #: [facility] Status: routine BSA: 1.80 HR: 80 bpm BP: 145/85 mmHg Rhythm: NSR Other Information Study Quality: Good Indications CVA/TIA Chest Pain Hypertension/HDD Echo Enhancing Agent Indication: Rule out Shunt Agent(s) / Amount(s) Used: Agitated Saline 10 cc 2D Dimensions IVSd: 10.96 (7-11mm) LVOT Diam: 18.00 (18-24mm) LVDd: 37.69 mm PWd: 9.26 (7-11mm) Ascending Ao: 34.39 (22-36mm) LVDs: 21.88 (25-40mm) Aortic Root: 30.07 mm Volumes Left Atrial Volume (Systole) LA ESV Index: 18.60 mL/m2 Aortic Valve AoV Peak Paras.: 1.44 m/[place] [address] 2 D/M-MODE ECHOCARDIOGRAM Name: SCOTT VORA Room: [address] IN [facility]#: [id number] Admission: 10/03/19 Attend Phys: Dominic Christian Discharge: Date of : 47 Date of Service: 10/05/19 1130 Report #: [id number] Peak Gr.: 8.25 mmHg LVOT Max P.17 mmHg AO Mean Gr.: 4.84 mmHg LVOT Mean P.81 mmHg LVOT Max V: 1.67 m/s AO V2 VTI: 29.53 cm LVOT Mean V: 0.99 m/s CONNIE (VTI): 2.80 cm2 LVOT V1 VTI: 32.43 cm Mitral Valve E/A Ratio: 0.74 MV Decel. Time: 207.19 ms MV E Max Paras.: 0.64 m/s MV PHT: 60.09 ms MVA (PHT): 3.66 cm2 TDI E/Lateral E': 6.40 E/Medial E': 8.00 Medial E' Paras.: 0.08 m/s Lateral E' Paras.: 0.10 m/s Pulmonary Valve PV Peak Paras.: 0.92 m/s PV Peak Gr.: 3.38 mmHg Left Ventricle The left ventricle is normal size. There is normal LV segmental wall motion. There is normal left ventricular wall thickness. Left ventricular systolic function is normal. The left ventricular ejection fraction is within the normal range. LVEF is 65-70%. Grade I - abnormal relaxation pattern. Right Ventricle The right ventricle is normal size. The right ventricular systolic function is normal. Atria The left atrium size is normal. The interatrial septum is intact with no evidence for an atrial septal defect. The right atrium size is normal. Aortic Valve Mild aortic valve sclerosis. No aortic regurgitation is present. There is no aortic valvular stenosis. Mitral Valve The mitral valve is normal in structure. There is no mitral valve regurgitation noted. No evidence of mitral valve stenosis. [place] [address] 2 D/M-MODE ECHOCARDIOGRAM Name: SCOTT VORA Room: [address] IN [facility]#: [id number] Admission: 10/03/19 Attend Phys: Dominic Christian Discharge: Date of : 47 Date of Service: 10/05/19 1130 Report #: [id number] The tricuspid valve is normal in structure. Trace tricuspid regurgitation. Pulmonic Valve The pulmonary valve is normal in structure. There is no pulmonic valvular regurgitation. Great Vessels The aortic root is normal in size. IVC is not well visualized. Pericardium There is no pericardial effusion. <Conclusion> LVEF is 65-70%. The interatrial septum is intact with no evidence for an atrial septal defect. <ELECTRONICALLY SIGNED> By: Donnell Lambert MD, FACC 10/05/19 1130 1130 1130 Donnell Lambert MD, FACC /INF
--- NOTE | 2019-10-05 11:40 | NUR ---
ASSUMED PT CARE AT 0800, AOX4, UP SBA, O2 SAT 90'S RA. TRACING SR 1ST DEGREE ON TELE. PT DENIES PAIN. PT FOR DISCHARGE, VSS AM ASSESSMENT CHARTED, MEDS GIVEN PER MAR, CALL LIGHT WITHIN REACH, WILL CONTINUE TO MONITOR.
[2019-10-05 12:00] VITALS: BP 171/93
== END 2019-10-05 13:45 | DRG 69 ==
LOC: M.ERS 16:18 → M.TBA-ER 17:57 → M.2W 17:57
PROVIDERS: Emergency Medicine Emergency Medical Services; ADMIT Internal Medicine
DX: G45.9 Transient cerebral ischemic attack, unspecified (principal); N17.9 Acute kidney failure, unspecified; E44.0 Moderate protein-calorie malnutrition; I95.9 Hypotension, unspecified; E86.0 Dehydration; J32.0 Chronic maxillary sinusitis; N18.3 Chronic kidney disease, stage 3 (moderate); I12.9 Hypertensive chronic kidney disease with stage 1 through stage 4 chronic kidney disease, or unspecified chronic kidney disease; E11.22 Type 2 diabetes mellitus with diabetic chronic kidney disease; R42 Dizziness and giddiness; T50.915A Adverse effect of multiple unspecified drugs, medicaments and biological substances, initial encounter; G20 Parkinson's disease; Z86.73 Personal history of transient ischemic attack (TIA), and cerebral infarction without residual deficits; I25.2 Old myocardial infarction; Z79.899 Other long term (current) drug therapy; Z79.82 Long term (current) use of aspirin; Z95.1 Presence of aortocoronary bypass graft; Z83.3 Family history of diabetes mellitus; Z82.49 Family history of ischemic heart disease and other diseases of the circulatory system; Z68.35 Body mass index [BMI] 35.0-35.9, adult; Z87.81 Personal history of (healed) traumatic fracture; Y92.89 Other specified places as the place of occurrence of the external cause

== ENCOUNTER 2019-11-02 08:29 | Inpatient (IN) | payer OTHER, MEDICAID ==
[~2019-11-02] VITALS: Ht 152.4 cm; Wt 88.9 kg
[2019-11-02] VITALS (7 sets, daily range): BP systolic 146–181; BP diastolic 78–116
[~2019-11-02 08:29] MED LIST changes: +CLARITIN10 MG PO; +LIPITOR40 MG PO
[2019-11-02 09:00] LABS: ABSOLUTE BASOPHILS 0.1 thou/uL (0.0-0.2); ABSOLUTE LYMPHOCYTES 1.4 thou/uL (0.8-5.3); BASOPHILS 0.8 %; EOSINOPHILS 0.2 %; HEMATOCRIT 46.3 % (42.0-52.0); HEMOGLOBIN 15.9 gm/dL (14.0-18.0); LYMPHOCYTES 13.3 %; MCH 31.6 pg (26.0-34.0); MCHC 34.2 g/dL (28.0-37.0); MCV 92.2 fL (80.0-100.0); MONOCYTES 9.5 %; MPV 10.6 fl. (7.2-11.1); NUCLEATED RBCS 0 /100WBC; PLATELET COUNT* 182 thou/uL (150-400); POLYS 76.2 %; RBC 5.02 mil/uL (4.50-6.00); WBC 10.5 thou/uL (4.0-11.0)
[2019-11-02 09:10] LABS: CALCIUM 8.2 mg/dL (8.5-10.1); CREATININE 1.2 mg/dL (0.6-1.3)
[2019-11-02 09:14] LABS: ALBUMIN 3.5 g/dL (3.4-5.0); TOTAL BILIRUBIN 0.8 mg/dL (<0.1-1.0); TOTAL PROTEIN 8.1 g/dL (6.4-8.2)
[2019-11-02 09:17] LABS: POTASSIUM 5.8 mmol/L (3.5-5.1)
--- NOTE | 2019-11-02 11:20 | NUR ---
BRIAN NOTIFIED UPON PT RETURN FROM CT. PT CONNECTED TO PULSE OX HE WAS PRIOR TO CT
--- NOTE | 2019-11-02 17:07 | EKG ---
[place] [address] ELECTROCARDIOGRAM REPORT Name: VIELKALEEANNESCOTT Ehsan Room: [address] ADM IN .R.#: [id number] Admission: 11/02/19 Attend Phys: Sj Elkins, Discharge: Date of : 47 Date of Service: 11/02/19 0921 Report #: [id number] THIS REPORT FOR: //name// 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: KANE : 1945 Requested By: Seamus Ordoñez Order Number: [id number] MD: Manuel Mukherjee Measurements Intervals [place] Rate: 63 P: 23 NC: 159 QRS: -9 QRSD: 78 T: 127 QT: 432 QTc: 443 Interpretive Statements Sinus rhythm Abnormal R-wave progression, early transition Nonspecific T abnrm, anterolateral leads Compared to ECG 10/03/2019 16:49:50 No significant changes Electronically Signed On 11-02-2019 17:05:53 CDT by Manuel Mukherjee [email or web address] <ELECTRONICALLY SIGNED> By: Manuel Mukherjee MD, FACC 11/02/19 1705 0 0 Manuel Mukherjee MD, FACC /EPI
--- NOTE | 2019-11-02 20:00 | NUR ---
RECEIVED REPORT AND ASSUMED CARE OF PT, ASSESSMENT COMPLETED. PT VERY TALKATIVE. ABD FIRMLY DISTENDED, C/O DISCOMFORT. ASSISTED PT TO SIDE OF BED TO URINATE BUT THEN UNABLE TO CONTROL STREAM, VOIDING ALL OVER FLOOR AND BED. TELEMETRY ON SHOWING SR. WILL CONT TO MONITOR AND ASSIST NEEDED.
[2019-11-03 04:31] VITALS: BP 161/93
[2019-11-03 06:46] LABS: ABSOLUTE BASOPHILS 0.1 thou/uL (0.0-0.2); ABSOLUTE EOSINOPHILS 0.1 thou/uL (0.0-0.7); ABSOLUTE LYMPHOCYTES 1.9 thou/uL (0.8-5.3); ABSOLUTE MONOCYTES 1.9 thou/uL (0.0-1.2); ABSOLUTE NEUTROPHILS 7.9 thou/uL (1.6-8.1); BASOPHILS 0.5 %; EOSINOPHILS 0.6 %; HEMATOCRIT 42.4 % (42.0-52.0); HEMOGLOBIN 14.4 gm/dL (14.0-18.0); LYMPHOCYTES 16.4 %; MCH 31.2 pg (26.0-34.0); MCHC 33.9 g/dL (28.0-37.0); MCV 91.9 fL (80.0-100.0); MONOCYTES 15.8 %; MPV 10.7 fl. (7.2-11.1); NUCLEATED RBCS 0 /100WBC; PLATELET COUNT* 181 thou/uL (150-400); POLYS 66.7 %; RBC 4.61 mil/uL (4.50-6.00); RDW-CV 14.9 % (10.5-14.5); WBC 11.9 thou/uL (4.0-11.0)
--- NOTE | 2019-11-03 06:46 | NUR ---
AWAKE ALL NIGHT AND VERY RESTLESS. MOVING ALL OVER THE BED. UNABLE TO COLLECT URINE IN THE URINAL, BED AND FLOOR WET. NO CHANGE IN ASSESSMENT. HS GOAL OF SAFETY ACHIEVED. HOURLY ROUNDING OBSERVED.
[2019-11-03 06:57] LABS: ALBUMIN 2.8 g/dL (3.4-5.0); CALCIUM 7.5 mg/dL (8.5-10.1); CREATININE 1.2 mg/dL (0.6-1.3); POTASSIUM 3.3 mmol/L (3.5-5.1); TOTAL BILIRUBIN 1.4 mg/dL (<0.1-1.0); TOTAL PROTEIN 6.3 g/dL (6.4-8.2)
[2019-11-03 08:48] VITALS: BP 160/92
[2019-11-03 12:29] VITALS: BP 149/79
[2019-11-03 17:14] VITALS: BP 159/108
--- NOTE | 2019-11-03 17:54 | NUR ---
PT REMAINS ON IVF AND WILL BE NPO 2400 FOR SURGERY IN THE AM.
[2019-11-03 19:45] VITALS: BP 153/95
[2019-11-04 00:06] VITALS: BP 154/92
[2019-11-04 04:09] VITALS: BP 159/93
--- NOTE | 2019-11-04 05:35 | NUR ---
PT SLEPT ON AND OFF THIS SHIFT. ASSESSMENT DOCUMENTED. MEDS GIVEN PER E-MAR. IV PATENT. NEW IV STARTED THIS SHIFT. NO REPORTS OF PAIN. PT NPO AFTER 0000. WILL CONTINUE WITH PLAN OF CARE.
[2019-11-04 05:46] LABS: ABSOLUTE BASOPHILS 0.1 thou/uL (0.0-0.2); ABSOLUTE EOSINOPHILS 0.2 thou/uL (0.0-0.7); ABSOLUTE LYMPHOCYTES 2.1 thou/uL (0.8-5.3); ABSOLUTE MONOCYTES 1.3 thou/uL (0.0-1.2); ABSOLUTE NEUTROPHILS 6.6 thou/uL (1.6-8.1); BASOPHILS 0.9 %; EOSINOPHILS 2.1 %; HEMOGLOBIN 14.4 gm/dL (14.0-18.0); LYMPHOCYTES 20.1 %; MCH 31.6 pg (26.0-34.0); MCHC 34.2 g/dL (28.0-37.0); MCV 92.3 fL (80.0-100.0); MONOCYTES 12.9 %; MPV 10.8 fl. (7.2-11.1); NUCLEATED RBCS 0 /100WBC; PLATELET COUNT* 178 thou/uL (150-400); RBC 4.55 mil/uL (4.50-6.00); RDW-CV 15.1 % (10.5-14.5); WBC 10.2 thou/uL (4.0-11.0)
[2019-11-04 06:01] LABS: ALBUMIN 2.8 g/dL (3.4-5.0); CREATININE 1.2 mg/dL (0.6-1.3); POTASSIUM 3.6 mmol/L (3.5-5.1); TOTAL BILIRUBIN 1.8 mg/dL (<0.1-1.0); TOTAL PROTEIN 6.8 g/dL (6.4-8.2)
[2019-11-04 07:03] VITALS: BP 159/93
[2019-11-04 07:20] VITALS: BP 146/84
[2019-11-04 16:20] VITALS: BP 150/99
[2019-11-04 20:00] VITALS: BP 145/85
[2019-11-05 00:46] VITALS: BP 120/64
[2019-11-05 04:30] VITALS: BP 125/75
--- NOTE | 2019-11-05 05:07 | NUR ---
ASSUMED CARE OF PT AFTER REPORT AT 1930. PT A&OX4. VSS. PHYSICAL ASSESSMENT COMPLETED AND CHARTED. PT TRACING SSR/SB ON TELE. PT UP WITH 1 ASSIST TO BSC. PT DENIES ANY PAIN OR DISCOMFORT. MAINTAINED ON CLEAR LIQUIDS ORDERED. CALL LIGHT WITHIN REACH.
[2019-11-05 07:40] VITALS: BP 99/63
--- NOTE | 2019-11-05 08:08 | NUR ---
ASSUMED CARE OF PT THIS AM AROUND 0715- BIOFUELS ENGINEERING MANAGER IN PLACE ORDERED, TRACING SR- UPON ASSESSMENT PT NOTED TO BE RESTING IN BED, WATCHING TV- PT A&O X4- CONT OF BOWEL AND BLADDER- SBA WITH TRANSFERS FOR SAFETY- LCTA, DYSPNEA NOTED ON EXERTION- VSS, O2 SAT 94-95% ON RA- ABD FIRM/ROUND/DISTENDED, BS X4 QUADS- BM REPORTED THIS AM- 4 ABD INCISSIONS NOTED WITH DRESSINGS INTACT- IV NOTED TO LEFT WRIST INTACT AND SL- +1 BLE EDEMA NOTED- BS MONITORED ORDERED- PT DENIES ANY C/O PAIN/DISCOMFORT AT THIS TIME- CALL LIGHT AND PERSONAL BELONGINGS WITH IN REACH- PT MAKES NEEDS KNOWN- ALL NEEDS MET AT THIS TIME-WCTM
[2019-11-05 08:55] VITALS: BP 99/63
--- NOTE | 2019-11-05 15:09 | PATH ---
[address] [address] PATHOLOGY RPT PROCEDURE Name: ALPHONSO VORA Room: [address] IN .R.#: [id number] Admission: 11/02/19 Date of : 47 Discharge: 11/05/19 Report #: [id number] Path Case #: [id number] [facility] Accession Number: [id number] . 01 Material submitted: . gallbladder - GALLBLADDER . 01 Clinical history: . Acute cholecystitis and hyperbilirubinemia . 02 Diagnosis: Gallbladder: - Chronic, acute, gangrenous and hemorrhagic cholecystitis. (ARIES:pit 11/05/2019) QTP 11/05/2019 1445 Local . 02 Electronically signed: . Aly Mauricio MD, Pathologist NPI- [id number] . 01 Gross description: . The specimen is received in formalin labeled "Vora, Alphonso, gallbladder" and consists of a punctured hemorrhagic purple-brown gallbladder measuring 8.0 x 3.0 x 1.9 cm. The margin is inked black. Opening reveals a lumen filled with hemorrhagic material and no calculi. The mucosa is pink-maroon and gangrenous with an average wall thickness of 0.2 cm. No masses are identified. Cashier Self Service Gasoline sections are submitted in A1. (SDY; 11/04/2019) SYU/SYU 11/04/2019 1648 Local . 02 Pathologist provided ICD-10: K81.0 . 02 CPT . 314864 Specimen Comment: A courtesy copy of this report has been sent to [phone] Specimen Comment: [phone], Specimen Comment: Report sent to ,DR CHERRY / DR WASSERMAN Performed at: [address] [facility] [address], [place], [place] [id number] MD Joe Arzate MD Phone: [phone] Performed at: 02 [facility] [address] [facility] [place], [place] [id number] MD Aly Mauricio MD Phone: [phone]
--- NOTE | 2019-11-06 09:31 | OP ---
[address] [address] OPERATIVE REPORT Name: SCOTT VORA Room: [address] IN .R.#: [id number] Admission: 11/02/19 Attend Phys: Sj Elkins MD Discharge: 11/05/19 Date of : 47 Report #: [id number] THIS REPORT FOR: //name// cc: Jame Andrade John E. DO ~ THIS REPORT FOR: //name// CC: Sj Andrade DICTATED BY: Aleksandr Brooks DO DATE OF SERVICE: 11/04/2019 This is Aleksandr Brooks PGY-3, dictating operative report on behalf of Dr. Monroe Elizondo. PREOPERATIVE DIAGNOSES: Cholecystitis and hyperbilirubinemia. POSTOPERATIVE DIAGNOSES: Acute cholecystitis and hyperbilirubinemia. SURGEON: Monroe Elizondo DO PROCEDURE PERFORMED: Laparoscopic cholecystectomy with intraoperative cholangiogram and surgeon interpretation of images. POULTRY SCIENTIST: Aleksandr Brooks PGY-3 ANESTHESIA: General and TAP blocks. ESTIMATED BLOOD LOSS: 10 mL. SPECIMENS REMOVED: Gallbladder. COMPLICATIONS: None. FINDINGS: Inflamed gallbladder with thick rind and gallbladder sludge. Cholangiogram performed with contrast flowing freely into the duodenum without any evidence of biliary obstruction. HISTORY OF PRESENT ILLNESS: The patient is a 74-year-old male who presented with acute onset right upper quadrant abdominal pain. He had associated symptoms with eating including nausea and vomiting. Physical exam revealed RUQ TTP and RUQ US confirmed [place] [address] OPERATIVE REPORT Name: SCOTT VORA Room: [address] IN .R.#: [id number] Admission: 11/02/19 Attend Phys: Sj Elkins MD Discharge: 11/05/19 Date of : 47 Report #: [id number] We elected to proceed with laparoscopic cholecystectomy with intraoperative cholangiogram secondary to hyperbilirubinemia. Risks, benefits and alternatives discussed at length and he agreed to proceed with surgery. DESCRIPTION OF PROCEDURE: After consent was obtained, the patient was taken to the operating room and placed in supine position. SCDs applied to bilateral lower extremities. Safety belt placed across the patient's waist. The patient underwent general endotracheal anesthesia without any complication. The patient was prepped and draped in the standard sterile fashion. A timeout was performed confirming patient and procedure. An 11 blade scalpel was used to make a vertical incision just above the umbilicus. Electrocautery was used for hemostasis and to dissect down to the level of fascia. Once fascia was encountered, it was scored with electrocautery, grasped between 2 Kochers. Hemostat was used to bluntly enter the peritoneum. Two stitches of 0 Vicryl placed on either side of the fascia. A 5 mm Rob trocar was inserted into the abdomen. Insufflation was initiated without complication. Intraabdominal contents were inspected. There was a significant amount of intra-abdominal fat. The patient was then placed in reverse Trendelenburg and rotated towards the left. A 5 mm trocar was placed in subxiphoid under direct visualization and two in the right upper quadrant under direct visualization. The gallbladder was grasped and elevated. The gallbladder was very difficult to grasp due to being distended and therefore, we elected to aspirate the gallbladder. A needle was placed into the gallbladder and about 50 mL of bile was aspirated from the gallbladder. The gallbladder was then grasped and elevated. Kassidy's pouch was taken medially and the lateral gallbladder peritoneum was taken down using electrocautery. Next, Kassidy's pouch was taken inferolaterally and the medial gallbladder peritoneum was taken down using electrocautery. Attention was turned towards isolating the cystic artery and cystic duct. A combination of blunt dissection using [place] dissector and electrocautery was used to carefully isolate the cystic duct, it was seen going up into the gallbladder. We then spent time isolating the cystic artery, which was also seen going up into the gallbladder. Critical view of safety was obtained. We then placed a Saravia clamp across the Kassidy's pouch and placed our cholangiogram catheter within the cystic duct. Normal saline was injected and flowed freely. We then brought in our fluoroscopy and injected isovue contrast into the cystic duct under fluoroscopy. Contrast could be seen going up into the common hepatic duct into the right and left hepatic ducts down to the common bile duct and into the duodenum without obstruction. There was no evidence of any stones. There was some tapering of the distal common bile duct; however, this was not obstructive in any way. We then terminated our cholangiogram and removed the catheter and Saravia clamp from the gallbladder. The gallbladder was regrasped and elevated. Two clips were placed on the proximal [address] [address] OPERATIVE REPORT Name: SCOTT VORA Room: M.206-P DIS IN M.R.#: [id number] Admission: 11/02/19 Attend Phys: Sj Elkins MD Discharge: 11/05/19 Date of : 47 Report #: [id number] cystic duct and one on the distal cystic duct; two clips were placed in the proximal cystic artery and one on the distal cystic artery. Both structures were cut with endoshears in between the proximal and distal clips . The gallbladder was then carefully dissected off the bed of the liver using electrocautery. The gallbladder was then placed in laparoscopic EndoCatch bag and the right upper quadrant was irrigated copiously and all fluid was suctioned out. Liver bed was inspected and there were some punctate areas of bleeding that were cauterized. Once hemostasis was completely ensured, the clips were reinspected and there was no evidence of bile or bleeding. This completed the procedure. Trocars were removed under direct visualization. Insufflation was released from the abdomen. The gallbladder was removed from the supraumbilical trocar site and supraumbilical fascia was closed with stitch of 0 Vicryl in a [id number] fashion. Subcutaneous tissue was reapproximated with 3-0 Vicryl and all skin incisions were closed with 4-0 Monocryl with sterile dressings applied over top. All needle, instrument, and sponge counts were correct at the end of the case. The patient was awoken from general anesthesia and transferred to PACU in stable condition. <ELECTRONICALLY SIGNED> By: Monroe Elizondo DO 11/06/19 0931 1118 1212Monroe Elizondo DO /victoria
== END 2019-11-05 09:40 | disposition home or self-care (01) | DRG 418 ==
LOC: M.ERS 08:29 → M.2W 11:40 → M.TBA-ER 11:40 → M.2W 12:32
PROVIDERS: Emergency Medicine Emergency Medical Services; Surgery; ADMIT Internal Medicine
PROC: BF131ZZ Fluoroscopy of Gallbladder and Bile Ducts using Low Osmolar Contrast (ICD-10-PCS; principal; 2019-11-04)
PROC: 0FT44ZZ Resection of Gallbladder, Percutaneous Endoscopic Approach (ICD-10-PCS; principal; 2019-11-04)
PROC: 3E0T3BZ Introduction of Anesthetic Agent into Peripheral Nerves and Plexi, Percutaneous Approach (ICD-10-PCS; 2019-11-04)
DX: K81.0 Acute cholecystitis (principal); R65.10 Systemic inflammatory response syndrome (SIRS) of non-infectious origin without acute organ dysfunction; I10 Essential (primary) hypertension; E11.9 Type 2 diabetes mellitus without complications; I25.10 Atherosclerotic heart disease of native coronary artery without angina pectoris; E78.5 Hyperlipidemia, unspecified; J44.9 Chronic obstructive pulmonary disease, unspecified; E66.01 Morbid (severe) obesity due to excess calories; E87.5 Hyperkalemia; G20 Parkinson's disease; I25.2 Old myocardial infarction; Z68.38 Body mass index [BMI] 38.0-38.9, adult; Z86.73 Personal history of transient ischemic attack (TIA), and cerebral infarction without residual deficits; Z79.899 Other long term (current) drug therapy; Z95.1 Presence of aortocoronary bypass graft

== ENCOUNTER 2019-12-29 09:33 | Emergency (ER) | payer OTHER, MEDICAID ==
[~2019-12-29] VITALS: Ht 152.4 cm; Wt 83.0 kg
[2019-12-29 10:21] LABS: ABSOLUTE BASOPHILS 0.1 thou/uL (0.0-0.2); ABSOLUTE EOSINOPHILS 0.2 thou/uL (0.0-0.7); ABSOLUTE LYMPHOCYTES 2.2 thou/uL (0.8-5.3); ABSOLUTE NEUTROPHILS 4.7 thou/uL (1.6-8.1); BASOPHILS 1.1 %; HEMATOCRIT 45.1 % (42.0-52.0); HEMOGLOBIN 15.7 gm/dL (14.0-18.0); LYMPHOCYTES 26.4 %; MCH 31.8 pg (26.0-34.0); MCHC 34.7 g/dL (28.0-37.0); MCV 91.6 fL (80.0-100.0); MPV 10.5 fl. (7.2-11.1); NUCLEATED RBCS 0 /100WBC; PLATELET COUNT* 186 thou/uL (150-400); POLYS 57.5 %; RBC 4.92 mil/uL (4.50-6.00); RDW-CV 14.5 % (10.5-14.5); WBC 8.2 thou/uL (4.0-11.0)
[2019-12-29 10:32] LABS: APTT 26.2 Seconds (25.0-31.3); PROTIME 10.7 Seconds (9.20-11.50)
[2019-12-29 10:35] LABS: CALCIUM 8.1 mg/dL (8.5-10.1); CREATININE 1.3 mg/dL (0.6-1.3); POTASSIUM 4.1 mmol/L (3.5-5.1)
[2019-12-29 10:46] LABS: ALBUMIN 3.4 g/dL (3.4-5.0); TOTAL BILIRUBIN 1.1 mg/dL (<0.1-1.0); TOTAL PROTEIN 7.7 g/dL (6.4-8.2)
[2019-12-29] MEDS ORDERED: ATIVAN1 M1 PO (11:59)
[2019-12-29 12:09] VITALS: BP 162/100
--- NOTE | 2019-12-29 15:25 | EKG ---
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: [facility] : 1945 Requested By: Ronny Rivers Order Number: [id number] MD: Manuel Mukherjee Measurements Intervals [place] Rate: 60 P: 67 [place]: 168 QRS: 8 QRSD: 93 T: 72 QT: 442 QTc: 442 Interpretive Statements Sinus rhythm Low voltage, precordial leads Compared to ECG 11/02/2019 09:21:58 Low QRS voltage now present Electronically Signed On 12-29-2019 15:25:26 CDT by Manuel Mukherjee [email or web address] <ELECTRONICALLY SIGNED> By: Manuel Mukherjee MD, FACC 12/29/19 1525 0944 0944 Manuel Mukherjee MD, [facility] /EPI
== END 2019-12-29 12:10 | disposition home or self-care (01) ==
LOC: M.ERS 09:33
PROVIDERS: Family Medicine
DX: R06.6 Hiccough (principal); I10 Essential (primary) hypertension; E11.9 Type 2 diabetes mellitus without complications; G20 Parkinson's disease; Z86.73 Personal history of transient ischemic attack (TIA), and cerebral infarction without residual deficits

== ENCOUNTER 2020-11-26 11:27 | Inpatient (IN) | payer OTHER, MEDICAID ==
[~2020-11-26] VITALS: Ht 149.9 cm; Wt 84.9 kg
[~2020-11-26 11:27] MED LIST changes: +ATIVAN1 M1 PO
[2020-11-26 11:30] VITALS: BP 171/81
[2020-11-26 12:15] LABS: ABSOLUTE BASOPHILS 0.1 thou/uL (0.0-0.2); ABSOLUTE EOSINOPHILS 0.2 thou/uL (0.0-0.7); ABSOLUTE LYMPHOCYTES 1.7 thou/uL (0.8-5.3); ABSOLUTE MONOCYTES 0.7 thou/uL (0.0-1.2); ABSOLUTE NEUTROPHILS 4.4 thou/uL (1.6-8.1); BASOPHILS 0.9 %; EOSINOPHILS 2.2 %; HEMATOCRIT 46.6 % (42.0-52.0); HEMOGLOBIN 15.9 gm/dL (14.0-18.0); LYMPHOCYTES 24.3 %; MCH 31.1 pg (26.0-34.0); MCV 91.3 fL (80.0-100.0); MONOCYTES 10.4 %; MPV 10.3 fl. (7.2-11.1); NUCLEATED RBCS 0 /100WBC; PLATELET COUNT* 184 thou/uL (150-400); POLYS 62.2 %; RDW-CV 14.6 % (10.5-14.5)
[2020-11-26 12:22] LABS: CALCIUM 8.5 mg/dL (8.5-10.1); CREATININE 1.3 mg/dL (0.6-1.3); POTASSIUM 3.8 mmol/L (3.5-5.1)
[2020-11-26 12:26] LABS: ALBUMIN 3.5 g/dL (3.4-5.0); TOTAL BILIRUBIN 1.2 mg/dL (<0.1-1.0); TOTAL PROTEIN 7.7 g/dL (6.4-8.2)
[2020-11-26 13:21] LABS: URINE BILIRUBIN NEGATIVE (Negative); URINE BLOOD NEGATIVE (Negative); URINE CLARITY CLEAR; URINE COLOR YELLOW; URINE GLUCOSE-RANDOM NEGATIVE (Negative); URINE KETONES NEGATIVE (Negative); URINE LEUKOCYTES-REFLEX NEGATIVE (Negative); URINE NITRITE-REFLEX NEGATIVE (Negative); URINE PROTEIN NEGATIVE (Negative); URINE UROBILINOGEN 0.2 E.U./dl (0.2-1.0)
[2020-11-26 13:29] LABS: AMP/METHAMP Negative (Negative); BARBITURATES Negative (Negative); BENZODIAZEPINES Negative (Negative); COCAINE Negative (Negative); METHADONE Negative (Negative); OPIATES Negative (Negative); PCP Negative (Negative); THC Negative (Negative)
[2020-11-26 14:48] VITALS: BP 179/94
[2020-11-26 16:40] VITALS: BP 168/96
[2020-11-26 20:05] VITALS: BP 187/101
[2020-11-27] VITALS: BP 162/90
[2020-11-27 04:00] VITALS: BP 176/98
[2020-11-27 05:35] LABS: CHOLESTEROL 189 mg/dL (<200); HDL CHOLESTEROL 28 mg/dL (>40); LDL CHOLESTEROL 98 mg/dL (<100); TC:HDL 6.8 Ratio (Not establshd); TRIGLYCERIDE 317 mg/dL (<150); VLDL 63 mg/dL (<40)
[2020-11-27 05:49] LABS: SERUM ASSESSMENT SL LIPEMIA
[2020-11-27 06:05] LABS: GLYCOHEMOGLOBIN (HGB A1C) 6.9 % (4.8-5.6)
[2020-11-27 08:00] VITALS: BP 140/86
[2020-11-27 12:42] VITALS: BP 140/86
[2020-11-27 13:43] VITALS: BP 164/89
--- NOTE | 2020-11-27 14:15 | EKG ---
[place] [address] ELECTROCARDIOGRAM REPORT Name: VIELKASCOTT Ehsan Room: [address] IN ..#: [id number] Admission: 11/26/20 Attend Phys: Sj Elkins, Discharge: 11/27/20 Date of : 47 Date of Service: 11/26/20 1135 Report #: [id number] THIS REPORT FOR: //name// [facility] ED Test Date: 2020-11-26 Test Time: 11:35:59 Pat Name: SCOTT VORA Department: Room: [facility] Gender: M Finisher Special Stocks: MAO : 1945 Requested By: Albert Chen Order Number: [id number] MD: Manuel Mukherjee Measurements Intervals [place] Rate: 82 P: 51 RI: 153 QRS: 0 QRSD: 81 T: 49 QT: 385 QTc: 450 Interpretive Statements Sinus rhythm Compared to ECG 12/29/2019 09:44:04 No significant changes Electronically Signed On 11-27-2020 14:15:00 CDT by Manuel Mukherjee [email or web address] <ELECTRONICALLY SIGNED> By: Manuel Mukherjee MD, FACC 11/27/20 1415 1135 1135 Manuel Mukherjee MD, [facility] /EPI
== END 2020-11-27 13:30 | disposition home or self-care (01) | DRG 305 ==
LOC: M.ERS 11:27 → M.TBA-ER 12:59 → M.2W 15:00
PROVIDERS: Physician Assistant; ADMIT Internal Medicine; ATTEND Internal Medicine
DX: I16.0 Hypertensive urgency (principal); I10 Essential (primary) hypertension; E11.9 Type 2 diabetes mellitus without complications; G20 Parkinson's disease; E66.01 Morbid (severe) obesity due to excess calories; I25.10 Atherosclerotic heart disease of native coronary artery without angina pectoris; Z20.822 Contact with and (suspected) exposure to COVID-19; I25.2 Old myocardial infarction; Z79.82 Long term (current) use of aspirin; Z79.899 Other long term (current) drug therapy; Z79.84 Long term (current) use of oral hypoglycemic drugs; I69.398 Other sequelae of cerebral infarction; Z95.1 Presence of aortocoronary bypass graft; Z68.37 Body mass index [BMI] 37.0-37.9, adult

== ENCOUNTER 2021-01-03 20:48 | Emergency (ER) | payer OTHER, MEDICAID ==
[~2021-01-03] VITALS: Ht 205.7 cm; Wt 65.8 kg
[2021-01-03 21:30] LABS: ABSOLUTE BASOPHILS 0.1 thou/uL (0.0-0.2); ABSOLUTE EOSINOPHILS 0.1 thou/uL (0.0-0.7); ABSOLUTE LYMPHOCYTES 1.9 thou/uL (0.8-5.3); ABSOLUTE MONOCYTES 0.9 thou/uL (0.0-1.2); ABSOLUTE NEUTROPHILS 6.9 thou/uL (1.6-8.1); BASOPHILS 1.3 %; EOSINOPHILS 1.1 %; HEMATOCRIT 45.5 % (42.0-52.0); HEMOGLOBIN 15.5 gm/dL (14.0-18.0); MCH 31.4 pg (26.0-34.0); MCHC 34.1 g/dL (28.0-37.0); MONOCYTES 8.6 %; NUCLEATED RBCS 0 /100WBC; PLATELET COUNT* 185 thou/uL (150-400); RBC 4.95 mil/uL (4.50-6.00); RDW-CV 14.9 % (10.5-14.5); WBC 9.9 thou/uL (4.0-11.0)
[2021-01-03 21:41] LABS: CALCIUM 8.8 mg/dL (8.5-10.1); CREATININE 1.8 mg/dL (0.6-1.3); POTASSIUM 4.6 mmol/L (3.5-5.1)
[2021-01-03 21:45] LABS: ALBUMIN 3.6 g/dL (3.4-5.0); TOTAL BILIRUBIN 1.1 mg/dL (<0.1-1.0); TOTAL PROTEIN 7.9 g/dL (6.4-8.2)
[2021-01-03 22:21] LABS: URINE BILIRUBIN NEGATIVE (Negative); URINE BLOOD NEGATIVE (Negative); URINE CLARITY CLEAR; URINE COLOR YELLOW; URINE GLUCOSE-RANDOM NEGATIVE (Negative); URINE KETONES TRACE (Negative); URINE LEUKOCYTES-REFLEX 1+ (Negative); URINE NITRITE-REFLEX NEGATIVE (Negative); URINE PROTEIN 1+ (Negative); URINE SPECIFIC GRAVITY 1.025 (1.005-1.030); URINE UROBILINOGEN 0.2 E.U./dl (0.2-1.0)
[2021-01-03] MEDS ORDERED: CEPHALEXIN500 MG PO (22:32)
[2021-01-03 23:03] VITALS: BP 143/93
[2021-01-03 23:17] LABS: BACTERIA-REFLEX 1-9 Few /HPF (None Seen); CRYSTALS None Seen /LPF (None Seen); MUCUS 0-3 Light strn/LPF (None Seen); SQUAMOUS 0-3 Few /LPF (0-3); URINE RBC 0-2 Rare /HPF (0-2); URINE WBC-REFLEX 6-15 Few /HPF (0-5)
[2021-01-03 23:18] LABS: HYALINE CASTS 0-3 Few /LPF (None Seen)
--- NOTE | 2021-01-04 09:22 | EKG ---
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: [place] : 1945 Requested By: Melyssa Cornejo Order Number: [id number] MD: Donnell Lambert Measurements Intervals [place] Rate: 70 P: 41 AL: 152 QRS: -19 QRSD: 78 T: 58 QT: 406 QTc: 439 Interpretive Statements Sinus rhythm Borderline left axis deviation Abnormal R-wave progression, early transition Borderline T wave abnormalities Compared to ECG 11/26/2020 11:35:59 no change Electronically Signed On 01-04-2021 9:22:44 CDT by Donnell Lambert [email or web address] <ELECTRONICALLY SIGNED> By: Donnell Lambert MD, [facility] 01/04/21921 48 48 Donnell Lambert MD, [facility] /EPI
== END 2021-01-03 23:03 | disposition home or self-care (01) ==
LOC: M.ERS 20:48
PROVIDERS: Personal Emergency Response Attendant
DX: S00.83XA Contusion of other part of head, initial encounter (principal); G20 Parkinson's disease; N39.0 Urinary tract infection, site not specified; E11.9 Type 2 diabetes mellitus without complications; I10 Essential (primary) hypertension; Z86.73 Personal history of transient ischemic attack (TIA), and cerebral infarction without residual deficits; W17.81XA Fall down embankment (hill), initial encounter; Y93.89 Activity, other specified; Y92.89 Other specified places as the place of occurrence of the external cause; Y99.8 Other external cause status